=== PATIENT | female | born 2000 | race Caucasian/White ===

== ENCOUNTER 2021-02-05 19:40 | Emergency (ER) | payer OTHER, SELFPAY ==
[2021-02-05 19:45] VITALS: BP 136/101; PULSE 83; RESP 20; TEMP 36.6; O2SAT 100
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
[2021-02-05 20:50] VITALS: BP 128/88; PULSE 83; RESP 18; O2SAT 100
== END 2021-02-05 20:50 | disposition home or self-care (01) ==
PROVIDERS: Emergency Provider Nurse Practitioner; PCP Family Medicine
DX: S16.1XXA Strain of muscle, fascia and tendon at neck level, initial encounter (principal); F17.210 Nicotine dependence, cigarettes, uncomplicated; M41.9 Scoliosis, unspecified; X37.1XXA Tornado, initial encounter; V58.5XXA Driver of pick-up truck or van injured in noncollision transport accident in traffic accident, initial encounter
CPT/HCPCS: 99282